=== PATIENT | male | born 1990 | race Caucasian/White ===

== ENCOUNTER 2016-09-14 18:49 | Emergency (ER) | payer BC ==
[2016-09-14 19:19] VITALS: BP 123/63
[2016-09-14] MEDS ORDERED: Sodium Chloride 0.9% 1,000 ML IV ONE (19:36)
[2016-09-14] MEDS ORDERED: Ondansetron 4 MG/2 ML SDV IVPUSH ONE (19:36)
[2016-09-14] MEDS ORDERED: Sodium Chloride 0.9% 10 ML Syringe FLUSH PRN (19:36)
--- NOTE | 2016-09-14 19:37 | EDM.PDOC ---
ED HPI GENERAL MEDICAL PROBLEM - General Chief Complaint: Gastrointestinal Problem Stated Complaint: Possible food poisoning Time Seen by Provider: 09/14/16 19:20 Source of Information: Reports: Patient, RN notes reviewed History Limitations: Reports: No Limitations - History of Present Illness INITIAL COMMENTS - FREE TEXT/NARRATIVE: 25 year old male presents to the ED with sudden onset of nausea, vomiting and diarrhea. The symptoms started around 2 pm and have progressively worsened. He reports eating surinamese food at noon which has been re-heated several times. The food also sat in their car for quite some time. Symptoms started with diarrhea around 2pm and vomiting at 4pm. He presented to the ED because he noticed small areas of blood in his vomit. No lightheadedness or syncope. He has some mild epigastric discomfort but no severe pain. No fever, chills, or sweats. No one else is sick but he is the only person who ate the left over surinamese. - Related Data Allergies Allergy/AdvReac Type Severity Reaction Status Date / Time No Known Allergies Allergy Verified 09/14/16 19:18 Home Meds: Home Meds Ciprofloxacin [IJD: Ciprofloxacin HCl] 500 mg PO BID #10 tab 09/14/16 [Rx] Ondansetron HCl [Zofran] 4 mg PO Q6H PRN #10 tablet 09/14/16 [Rx] Past Medical History HEENT History: Reports: Impaired vision Other HEENT History: wears corrective lenses - Past Surgical History HEENT Surgical History: Reports: Other (see below) Other HEENT Surgeries/Procedures: wisdom tooth removal Social & Family History - Tobacco Use Smoking Status *Q: Never Smoker Second Hand Smoke Exposure: No - Caffeine Use Caffeine Use: Reports: Coffee - Recreational Drug Use Recreational Drug Use: No ED ROS GENERAL - Review of Systems Review Of Systems: See Below Constitutional: Reports: No Symptoms. Denies: Fever, Chills Respiratory: Reports: No Symptoms Cardiovascular: Reports: No Symptoms GI/Abdominal: Reports: Diarrhea, Nausea, Vomiting ED EXAM, GI/ABD - Physical Exam Exam: See Below Exam Limited By: No Limitations General Appearance: Alert, WD/WN, No Apparent Distress Respiratory/Chest: No Respiratory Distress, Lungs Clear, Normal Breath Sounds Cardiovascular: Regular Rate, Rhythm GI/Abdominal: Normal Bowel Sounds, Soft, Non-Tender, No Distention Neurological: Alert, Normal Cognition Course - Vital Signs Last Recorded V/S: Last Vital Signs Temp 98.7 F 09/14/16 19:14 Pulse 80 09/14/16 19:14 Resp 18 09/14/16 19:14 BP 123/63 09/14/16 19:14 Pulse Ox 100 09/14/16 19:14 - Orders/Labs/Meds Orders: Active Orders 24 hr Category Date Time Status Peripheral IV Care [RC] . DIRECTED Care 09/14/16 19:36 Active Sodium Chloride 0.9% [Saline Flush] Med 09/14/16 19:36 Active 10 ml FLUSH ASDIRECTED PRN Peripheral IV Insertion Adult [OM.PC] Stat Oth 09/14/16 19:36 Ordered Medication Orders Sodium Chloride (Saline Flush) 10 ml FLUSH ASDIRECTED PRN PRN Reason: Keep Vein Open Last Admin: 09/14/16 19:47 Dose: 10 ml Labs: Laboratory Tests 09/14/16 09/14/16 Range/Units 19:30 19:30 WBC 12.64 H (4.23-9.07) K/mm3 RBC 5.67 (4.63-6.08) M/mm3 Hgb 15.8 (13.7-17.5) gm/L Hct 45.3 (40.1-51.0) % MCV 79.9 (79.0-92.2) fl MCH 27.9 (25.7-32.2) pg MCHC 34.9 (32.2-35.5) g/dl RDW Std Deviation 37.0 (35.1-43.9) fL Plt Count 252 (163-337) K/mm3 MPV 9.7 (9.4-12.3) fl Neut % (Auto) 90.3 H (34.0-67.9) % Lymph % (Auto) 3.7 L (21.8-53.1) % [place] % (Auto) 5.3 (5.3-12.2) % Eos % (Auto) 0.4 L (0.8-7.0) Baso % (Auto) 0.1 (0.1-1.2) % Neut # (Auto) 11.42 H (1.78-5.38) K/mm3 Lymph # (Auto) 0.47 L (1.32-3.57) K/mm3 [place] # (Auto) 0.67 (0.30-0.82) K/mm3 Eos # (Auto) 0.05 (0.04-0.54) K/mm3 Baso # (Auto) 0.01 (0.01-0.08) K/mm3 Manual Slide Review Abnormal smear Sodium 139 (136-145) mEq/L Potassium 3.8 (3.5-5.1) mEq/L Chloride 103 (98-107) mEq/L Carbon Dioxide 23 (21-32) mEq/L Anion Gap 16.8 H (5-15) BUN 20 H (7-18) mg/dL Creatinine 1.3 (0.7-1.3) mg/dL Est Cr Clr Drug Dosing 85.05 mL/min Estimated GFR (MDRD) > 60 (>60) mL/min BUN/Creatinine Ratio 15.4 (14-18) Glucose 127 H (74-106) mg/dL Calcium 9.6 (8.5-10.1) mg/dL Total Bilirubin 1.0 (0.2-1.0) mg/dL AST 27 (15-37) U/L ALT 42 (16-63) U/L Alkaline Phosphatase 74 (46-116) U/L Total Protein 8.7 H (6.4-8.2) g/dl Albumin 4.8 (3.4-5.0) g/dl Globulin 3.9 gm/dL Albumin/Globulin Ratio 1.2 (1-2) Meds: Medications Generic Name Dose Route Start Last Admin Trade Name Freq PRN Reason Stop Dose Admin Sodium Chloride 10 ml 09/14/16 19:36 09/14/16 19:47 Saline Flush FLUSH 10 ml ASDIRECTED PRN Administration Keep Vein Open Discontinued Medications Generic Name Dose Route Start Last Admin Trade Name Freq PRN Reason Stop Dose Admin Sodium Chloride 1,000 mls @ 999 mls/hr 09/14/16 19:36 09/14/16 19:47 Normal Saline IV 09/14/16 20:36 999 mls/hr ONETIME ONE Administration Ketorolac Tromethamine 30 mg 09/14/16 20:20 09/14/16 20:25 Toradol IVPUSH 09/14/16 20:21 30 mg ONETIME ONE Administration Ondansetron HCl 4 mg 09/14/16 19:36 09/14/16 19:46 Zofran IVPUSH 09/14/16 19:37 4 mg ONETIME ONE Administration - Re-Assessments/Exams Free Text/Narrative Re-Assessment/Exam: CBC reveals elevated WBC of 12.8. CMP reveals Na 139, K 3.8, anion gap 16, BUN 20, cr 1.3. Patient was treated with IV fluids, zofran and toradol. He is feeling much better. Will discharge home with prescription for cipro. Educated on return precautions. Discharge instructions as documented. Departure - Departure Time of Disposition: 20:47 Disposition: Home, Self-Care 01 Condition: good Clinical Impression: Foodborne gastroenteritis - Discharge Information Prescriptions: Ciprofloxacin [IJD: Ciprofloxacin HCl] 500 mg PO BID #10 tab Ondansetron HCl [Zofran] 4 mg PO Q6H PRN #10 tablet PRN Reason: Nausea/Vomiting Referrals: PCP,Not In Area [Primary Care Provider] - Forms: ED Department Discharge Additional Instructions: Zofran 4mg every 6 hours as needed for nausea Immodium as directed for diarrhea Ciprofloxacin 500mg twice a day for 5 days, start tonight Slowly advance diet as tolerated. Start with fluids then increase to bland diet (toast, crackers, soup, applesauce) Return to ER if symptoms have not improved in 48 hours or sooner if symptoms worsen - My Orders Last 24 Hours: My Active Orders 09/14/16 19:36 Peripheral IV Care [RC] . DIRECTED Sodium Chloride 0.9% [Saline Flush] 10 ml FLUSH ASDIRECTED PRN Peripheral IV Insertion Adult [OM.PC] Stat - Assessment/Plan Last 24 Hours: My Active Orders 09/14/16 19:36 Peripheral IV Care [RC] . DIRECTED Sodium Chloride 0.9% [Saline Flush] 10 ml FLUSH ASDIRECTED PRN Peripheral IV Insertion Adult [OM.PC] Stat
[2016-09-14] MEDS ORDERED: Ketorolac 30 MG/ML SDV IVPUSH ONE (20:20)
== END 2016-09-14 21:10 | disposition home or self-care (01) ==
LOC: JD.ED 18:49
DX: A05.9 Bacterial foodborne intoxication, unspecified (principal)
CPT/HCPCS: 36415; 80053; 85025; 96361; 96374; 96375; 99284; J1885; J2405; J7040; J7050

== ENCOUNTER 2021-03-21 15:06 | Emergency (ER) | payer BC ==
[2021-03-21 15:22] VITALS: BP 124/74; PULSE 64
--- NOTE | 2021-03-21 15:30 | EDM.PDOC ---
ED HPI GENERAL MEDICAL PROBLEM - General Chief Complaint: Chest Pain Stated Complaint: CHEST PAIN X 2 DAYS Time Seen by Provider: 03/21/21 15:15 Source of Information: Reports: Patient, RN Notes Reviewed History Limitations: Reports: No Limitations - History of Present Illness INITIAL COMMENTS - FREE TEXT/NARRATIVE: Patient is a 30-year-old male presenting to the emergency department with complaints of aching in his chest that began on Sunday evening and has been fairly consistent since that time. States symptoms seem to be slightly worse with taking a deep breath. He feels like he does not get a full deep breath. Patient reports that he was preparing for an extended period time on and thinks this may be related to inflammation in his lungs from inhaling spray paint. He did not have any symptoms until Sunday. Today he did develop nasal congestion but denies any other ill complaints. He has no chronic medical conditions. Denies any fever, chills, nausea, vomiting, diarrhea, cough. He reports he has had contact with individuals who have later tested positive for Covid. Mid-Sternal Chest Pain Score (Numeric/FACES): 3 - Related Data Allergies Allergy/AdvReac Type Severity Reaction Status Date / Time No Known Allergies Allergy Verified 03/21/21 15:22 Home Meds: Home Meds Albuterol [Ventolin HFA] 2 puff INH Q4H PRN #1 ea 03/21/21 [Rx] Multivitamin 1 each PO DAILY 03/21/21 [History] predniSONE [Prednisone] 20 mg PO ASDIRECTED #15 tablet 03/21/21 [Rx] Past Medical History HEENT History: Reports: Impaired Vision Other HEENT History: wears corrective lenses Psychiatric History: Reports: Anxiety - Past Surgical History HEENT Surgical History: Reports: Oral Surgery Social & Family History - Tobacco Use Tobacco Use Status *Q: Never Tobacco User - Caffeine Use Caffeine Use: Reports: Coffee - Recreational Drug Use Recreational Drug Use: No ED ROS GENERAL - Review of Systems Review Of Systems: Comprehensive ROS is negative, except as noted in HPI. ED EXAM, GENERAL - Physical Exam Exam: See Below Exam Limited By: No Limitations General Appearance: Alert, WD/WN, No Apparent Distress Respiratory/Chest: No Respiratory Distress, Lungs Clear, Normal Breath Sounds, No Accessory Muscle Use, Chest Non-Tender Cardiovascular: Normal Peripheral Pulses, Regular Rate, Rhythm, No Edema, No Gallop, No JVD, No Murmur, No Rub GI/Abdominal: Normal Bowel Sounds, Soft, Non-Tender, No Organomegaly, No Distention, No Abnormal Bruit, No Mass Neurological: Alert, Oriented, CN II-XII Intact, Normal Cognition, Normal Gait, Normal Reflexes, No Motor/Sensory Deficits Psychiatric: Normal Affect, Normal Mood Skin Exam: Warm, Dry, Intact, Normal Color, No Rash #1 Interpretation EKG Date: 03/21/21 Time: : Rhythm: NSR Rate (Beats/Min): 68 [place]: Normal P-Wave: Present QRS: Normal ST-T: Normal QT: Normal Course - Vital Signs Last Recorded V/S: Last Vital Signs Temp 97.8 F 03/21/21 15:15 Pulse 64 03/21/21 15:15 Resp 18 03/21/21 15:15 BP 124/74 03/21/21 15:15 Pulse Ox 94 L 03/21/21 15:15 - Orders/Labs/Meds Labs: Laboratory Tests 03/21/21 03/21/21 03/21/21 Range/Units 15:42 15:45 15:45 WBC 5.47 (4.23-9.07) K/mm3 RBC 5.16 (4.63-6.08) M/mm3 Hgb 14.2 D (13.7-17.5) gm/dl Hct 42.3 (40.1-51.0) % MCV 82.0 (79.0-92.2) fl MCH 27.5 (25.7-32.2) pg MCHC 33.6 (32.2-35.5) g/dl RDW Std Deviation 38.2 (35.1-43.9) fL Plt Count 280 (163-337) K/mm3 MPV 9.7 (9.4-12.3) fl Neut % (Auto) 55.0 (34.0-67.9) % Lymph % (Auto) 34.2 (21.8-53.1) % [place] % (Auto) 9.1 (5.3-12.2) % Eos % (Auto) 1.1 (0.8-7.0) Baso % (Auto) 0.4 (0.1-1.2) % Neut # (Auto) 3.01 (1.78-5.38) K/mm3 Lymph # (Auto) 1.87 (1.32-3.57) K/mm3 [place] # (Auto) 0.50 (0.30-0.82) K/mm3 Eos # (Auto) 0.06 (0.04-0.54) K/mm3 Baso # (Auto) 0.02 (0.01-0.08) K/mm3 D-Dimer, Quantitative < 0.19 L (0.19-0.50) mg/L Sodium (136-145) mEq/L Potassium (3.5-5.1) mEq/L Chloride (98-107) mEq/L Carbon Dioxide (21-32) mEq/L Anion Gap (5-15) BUN (7-18) mg/dL Creatinine (0.7-1.3) mg/dL Est Cr Clr Drug Dosing mL/min Estimated GFR (MDRD) (>60) mL/min BUN/Creatinine Ratio (14-18) Glucose (70-99) mg/dL Calcium (8.5-10.1) mg/dL Total Bilirubin (0.2-1.0) mg/dL AST (15-37) U/L ALT (16-63) U/L Alkaline Phosphatase (46-116) U/L Troponin I (0.00-0.056) ng/mL C-Reactive Protein (<1.0) mg/dL Total Protein (6.4-8.2) g/dl Albumin (3.4-5.0) g/dl Globulin gm/dL Albumin/Globulin Ratio (1-2) SARS-CoV-2 RNA (ERIN) Negative (NEGATIVE) 03/21/21 Range/Units 15:45 WBC (4.23-9.07) K/mm3 RBC (4.63-6.08) M/mm3 Hgb (13.7-17.5) gm/dl Hct (40.1-51.0) % MCV (79.0-92.2) fl MCH (25.7-32.2) pg MCHC (32.2-35.5) g/dl RDW Std Deviation (35.1-43.9) fL Plt Count (163-337) K/mm3 MPV (9.4-12.3) fl Neut % (Auto) (34.0-67.9) % Lymph % (Auto) (21.8-53.1) % [place] % (Auto) (5.3-12.2) % Eos % (Auto) (0.8-7.0) Baso % (Auto) (0.1-1.2) % Neut # (Auto) (1.78-5.38) K/mm3 Lymph # (Auto) (1.32-3.57) K/mm3 [place] # (Auto) (0.30-0.82) K/mm3 Eos # (Auto) (0.04-0.54) K/mm3 Baso # (Auto) (0.01-0.08) K/mm3 D-Dimer, Quantitative (0.19-0.50) mg/L Sodium 141 (136-145) mEq/L Potassium 3.5 (3.5-5.1) mEq/L Chloride 104 (98-107) mEq/L Carbon Dioxide 24 (21-32) mEq/L Anion Gap 16.5 H (5-15) BUN 17 (7-18) mg/dL Creatinine 1.3 (0.7-1.3) mg/dL Est Cr Clr Drug Dosing 84.60 mL/min Estimated GFR (MDRD) > 60 (>60) mL/min BUN/Creatinine Ratio 13.1 L (14-18) Glucose 96 (70-99) mg/dL Calcium 9.3 (8.5-10.1) mg/dL Total Bilirubin 0.6 (0.2-1.0) mg/dL AST 24 (15-37) U/L ALT 28 (16-63) U/L Alkaline Phosphatase 60 (46-116) U/L Troponin I < 0.017 (0.00-0.056) ng/mL C-Reactive Protein <0.2 (<1.0) mg/dL Total Protein 8.1 (6.4-8.2) g/dl Albumin 4.5 (3.4-5.0) g/dl Globulin 3.6 gm/dL Albumin/Globulin Ratio 1.3 (1-2) SARS-CoV-2 RNA (ERIN) (NEGATIVE) - Re-Assessments/Exams Free Text/Narrative Re-Assessment/Exam: Patient is a 30-year-old male presenting to the emergency department plaints of a 2-day history of aching in his chest and difficulty taking a deep breath. He was painting using spray paint without a mask on and feels that it may be related to this. He has no significant cardiac history. Exam is unremarkable. Lung sounds are clear to auscultation. He has no chest wall tenderness. I have ordered blood work, EKG, chest x-ray, Covid test. 03/21/21 17:05 Work-up is grossly unremarkable. D-dimer and troponin are undetectably low. Chest x-ray shows no acute abnormalities. EKG shows normal sinus rhythm at 65. Discussed with patient that symptoms are likely related to inflammation consistent with bronchitis. I will start him on prednisone and albuterol inhaler. Discussed return precautions. Discharge instructions as documented. Departure - Departure Time of Disposition: 17:05 Disposition: Home, Self-Care 01 Condition: Good Clinical Impression: Bronchitis Prescriptions: predniSONE [Prednisone] 20 mg PO ASDIRECTED #15 tablet Albuterol [Ventolin HFA] 2 puff INH Q4H PRN #1 ea PRN Reason: Shortness Of Breath Instructions: Acute Bronchitis, Adult, [id number] Referrals: Lakeisha Vega PA-C [Primary Care Provider] - Forms: ED Department Discharge Additional Instructions: Take prednisone and albuterol as prescribed. Follow-up in clinic or return to ER for new or worsening Sepsis Event Note (ED) - Evaluation Sepsis Screening Result: No Definite Risk - Focused Exam Vital Signs: Vital Signs Temp Pulse Resp BP Pulse Ox 03/21/21 15:15 97.8 F 64 18 124/74 94 L
--- NOTE | 2021-03-21 16:21 | CR ---
Chest: Portable view of the chest was obtained. Comparison: No prior chest imaging is available. Heart size and mediastinum are normal. Lungs are clear with no acute parenchymal change. Bony structures show nothing acute. Impression: 1. Nothing acute is seen on portable chest x-ray. Diagnostic code #1
== END 2021-03-21 17:22 | disposition home or self-care (01) ==
LOC: JD.ED 15:06
DX: J40 Bronchitis, not specified as acute or chronic (principal); Z20.822 Contact with and (suspected) exposure to COVID-19
CPT/HCPCS: 36415; 71045; 71045-26; 80053; 84484; 85025; 85379; 86140; 93005; 99285-25; U0002

== ENCOUNTER 2021-05-21 16:21 | Emergency (ER) | payer BC ==
[2021-05-21 16:29] VITALS: BP 129/107; PULSE 78
[2021-05-21] MEDS ORDERED: LORazepam 2 MG/ML SDV IVPUSH ONE (16:38)
[2021-05-21] MEDS ORDERED: Dextrose 5%-0.9% NaCl 1,000 ML IV SCH (16:45)
[2021-05-21 17:10] LABS: CORONAVIRUS COVID-19 NAA NEGATIVE (NEGATIVE)
== END 2021-05-21 18:26 | disposition home or self-care (01) ==
LOC: JD.ED 16:21
DX: F41.0 Panic disorder [episodic paroxysmal anxiety] (principal); F45.8 Other somatoform disorders; Z20.822 Contact with and (suspected) exposure to COVID-19
CPT/HCPCS: 0240U; 36415; 80053; 83735; 85025; 86140; 96374; 99284; J2060; J7042

== ENCOUNTER 2024-02-10 19:23 | Emergency (ER) | payer BC ==
[2024-02-10 19:39] VITALS: BP 133/83; PULSE 76
== END 2024-02-10 20:15 | disposition home or self-care (01) ==
LOC: JD.ED 19:23
DX: S93.601A Unspecified sprain of right foot, initial encounter (principal); X58.XXXA Exposure to other specified factors, initial encounter
CPT/HCPCS: 73630-26-RT; 73630-RT; 99282; 99283